=== PATIENT | female | born 1990 | race Caucasian/White ===

== ENCOUNTER 2020-08-13 08:51 | Emergency (ER) | payer BC ==
[~2020-08-13] VITALS: Ht 157.5 cm; Wt 70.3 kg
[~2020-08-13 08:51] MED LIST: CEPH500C PO; CYCL10TA9 PO; METR500T PO; PREN-115 PO; TRM50T PO
[2020-08-13 09:00] VITALS: BP 124/97
--- NOTE | 2020-08-13 09:33 | ED EENT ---
History of Present Illness General Chief Complaint: Laceration Stated Complaint: LIP LAC Nursing Triage Note: PT AMB TO [facility] 4 WITH COMPLAINT OF LACERATION TO LEFT LOWER LIP. STATES WAS WORKING ON HOUSE LAST NIGHT AND HAD A 2X4 HIT HER IN THE FACE. Source: patient Exam Limitations: no limitations History of Present Illness Date Seen by Provider: Aug 13, 2020 Time Seen by Provider: 09:16 Initial Comments Patient presents ER by private conveyance from home with chief complaint that she was helping frame out a new room in her house and was in the wrong place at the wrong time and a 2 x 4 struck her in the left side of her mouth. She bit into her left lower lip and has knocked her left anterior upper incisor loose but she pushed it back in place. He did not fall out. She is not having any bleeding. Just some swelling and when she went to work the staff told her she needed to come get stitches in it. Patient states she feels safe at home Allergies and Home Medications Allergies Coded Allergies: No Known Drug Allergies (Unverified , 10/15/14) Home Medications Tramadol HCl 50 Mg Tablet, 50 MG PO Q6H PRN for PAIN Prescribed by: PEDRITO HILLIARD on 01/22/162012 Patient Home Medication List Home Medication List Reviewed: Yes Review of Systems Review of Systems Constitutional: No chills, No diaphoresis Eyes: Denies Blindness, Denies Blurred Vision Ears: Denies Pain Nose: denies clots, denies congestion Mouth: see HPI, pain, swelling : No All Other Systems Reviewed Negative Unless Noted: Yes Past Shpljgn-Ubrguf-Quilgj Hx Patient Social History Alcohol Use: Occasionally Uses Number of Drinks Today: FF Alcohol Beverage of Choice: Beer, Vodka Smoking Status: Current Everyday Smoker Type Used: Cigarettes Recent Infectious Disease Expo: No Recent Hopitalizations: No Immunizations Up To Date Tetanus Booster (TDap): Less than 5yrs Seasonal Allergies Seasonal Allergies: Yes Past Medical History Orthopedic Reproductive Disorders: No Female Reproductive Disorders: Denies Fractures Family Medical History No Pertinent Family Hx Physical Exam Vital Signs Vital Signs - First Documented 08/13/20 09:00 Temp 37.1 Pulse 94 Resp 20 B/P (MAP) 124/97 (106) Pulse Ox 95 O2 Delivery Room Air Height, Weight, BMI Height: 5'3" Weight: 145lbs. oz. 65.578045kr; 28.00 BMI Method:Estimated General Appearance: WD/WN, no apparent distress Eyes: bilateral eye normal inspection, bilateral eye PERRL, bilateral eye EOMI Ears: bilateral ear auricle normal, bilateral ear canal normal Nose: normal inspection; No active bleeding Mouth/Throat: other (Laceration internal mucosa of her left lower lip that is not going all the way through and hemostatic. Left upper incisor is a little loose.) Cardiovascular: normal peripheral pulses, regular rate, rhythm Respiratory: no respiratory distress, no accessory muscle use Progress/Results/Core Measures Results/Orders Vital Signs/I&O 08/13/20 09:00 Temp 37.1 Pulse 94 Resp 20 B/P (MAP) 124/97 (106) Pulse Ox 95 O2 Delivery Room Air Blood Pressure Mean: 106 Progress Progress Note : Time: 09:29 Progress Note Does not cross the vermilion border. It is hemostatic. We have discussed that she can just treat this with salt water gargles, Orajel and time. Ice pack for the lip swelling. We instructed her to go to the dentist to get her tooth addressed. If it falls out putting milk and follow-up with the dentist Departure Impression Primary Impression: Laceration of lower lip Qualified Codes: S01.511A - Laceration without foreign body of lip, initial encounter Additional Impression: Tooth loose Disposition: 01 HOME, SELF-CARE Condition: Stable Departure-Patient Inst. Decision time for Depature: 09:30 Referrals: KRYSTAL KEARNS DDS, ADAM S DO (PCP/Family) Primary Care Physician Patient Instructions: Mouth and Dental Injuries in Adults Add. Discharge Instructions: The skin inside your mouth rarely needs sutured because it heals so quickly. If it bleeds you can steep a bag of tea and then drain it and put the tea bag directly on the wound to get it stop bleeding. Gauze with Orajel for pain. Tylenol and Motrin for pain. Ice applied to the lip for swelling and pain 20 minutes on every 2 hours as necessary for the first couple days. You should follow-up with a dentist promptly to make sure your tooth is seated correctly and they can help you keep the tooth from dying. If the tooth falls out put it in a solution of milk and go directly to the dentist office. All discharge instructions reviewed with patient and/or family. Voiced understanding. Work/School Note: Work Release Form Date Seen in the Emergency Department: Aug 13, 2020 Return to Work: Aug 14, 2020 Restrictions: No Restrictions Copy Copies To 1: KRYSTAL KEARNS DDS, TITUS J Aug 13, 2020 09:33
== END 2020-08-13 09:41 | disposition home or self-care (01) ==
LOC: EDUNIT# 08:51 → ER 08:52
DX: S01.511A Laceration without foreign body of lip, initial encounter (principal); K08.419 Partial loss of teeth due to trauma, unspecified class; F17.210 Nicotine dependence, cigarettes, uncomplicated; W22.8XXA Striking against or struck by other objects, initial encounter; Y92.008 Other place in unspecified non-institutional (private) residence as the place of occurrence of the external cause
CPT/HCPCS: 99282

== ENCOUNTER 2023-04-09 10:19 | Emergency (ER) | payer BC ==
[~2023-04-09 10:19] MED LIST changes: +CYCL10TA25 PO; -CYCL10TA9 PO
--- NOTE | 2023-04-09 10:51 | ED Cardiac General ---
History of Present Illness General Chief Complaint: Chest Pain Stated Complaint: CHEST PAINS Nursing Triage Note: PT CO OF CHEST PAIN THRU CENTER OF CHEST THRU TO BACK, PT STATES HAD FEVER UP TO 102 LAST WEEK, CP CONT 02/20. SMOKER. Source: patient Exam Limitations: no limitations History of Present Illness Date Seen by Provider: Apr 09, 2023 Time Seen by Provider: 10:40 Initial Comments 32-year-old female presents emergency department today for chest pain. She points to her xiphoid region as location of the pain and states it go straight through to her mid back. Symptoms present for about 2 or 3 days. She had a viral type URI prior which did include a nonproductive cough and fevers. Fevers have resolved but she still has a mild dry cough. Regarding her chest pain is sharp stabbing and very brief, fleeting about 5 seconds at a time but severe when present. She can push in the area and reproduce the pain. She denies any trauma. No cardiac history. All other systems reviewed and negative except documented per HPI. Voice recognition software was used to help create this chart ASA po PACKAGE WINDER: No Allergies and Home Medications Allergies Coded Allergies: No Known Drug Allergies (Unverified , 10/15/14) Patient Home Medication List Home Medication List Reviewed: Yes Tramadol HCl (Tramadol HCl) 50 Mg Tablet, 50 MG PO Q6H PRN for PAIN Prescribed by: PEDRITO HILLIARD on 01/22/162012 Review of Systems Review of Systems Constitutional: see HPI Past Xmxrlzy-Lptlbn-Ucytxh Hx Patient Social History Tobacco Use?: Yes Tobacco type used: Cigarettes Smoking Status: Current Everyday Smoker Substance use?: No Alcohol Use?: Yes Alcohol Frequency: Once in a while Pt feels they are or have been: No Immunizations Up To Date Tetanus Booster (TDap): Less than 5yrs Influenza Vaccine Up-to-Date: No; Not Current First/Initial COVID19 Vaccinat: YES Second COVID19 Vaccination Bear: YES Seasonal Allergies Seasonal Allergies: Yes Past Medical History Surgery/Hospitalization HX: [facility] AT CHILD, [facility] Last Menstrual Period: Mar 19, 2023 Reproductive Disorders: No Female Reproductive Disorders: Denies Fractures Family Medical History No Pertinent Family Hx Physical Exam Vital Signs Vital Signs - First Documented 04/09/23 10:29 Pulse 71 Resp 18 B/P (MAP) 142/94 (110) Pulse Ox 98 O2 Delivery Room Air Capillary Refill : Less Than 3 Seconds Height, Weight, BMI Height: 5'3" Weight: 145lbs. oz. 65.652924sr; 28.00 BMI Method:Estimated General Appearance: No Apparent Distress, WD/WN HEENT: Normal ENT Inspection, Pharynx Normal Neck: Normal Inspection, Supple Respiratory: Lungs Clear, Other (Tenderness palpation over the xiphoid region. No crepitus, deformity or skin changes.) Cardiovascular: Regular Rate, Rhythm, No Murmur, Normal Peripheral Pulses Gastrointestinal: Normal Bowel Sounds, No Organomegaly, Non Tender, Soft Extremity: Normal Capillary Refill, Normal Inspection, Normal Range of Motion, Non Tender, No Calf Tenderness Neurologic/Psychiatric: Alert, Oriented x3, Normal Mood/Affect Skin: Normal Color, Warm/Dry Progress/Results/Core Measures Results/Orders My Orders Orders - LORNACORNELIA DO Chest 1 View, Ap/Pa Only (04/09/23 10:48) Ekg Tracing (04/09/23 10:48) Vital Signs/I&O 04/09/23 10:29 Pulse 71 Resp 18 B/P (MAP) 142/94 (110) Pulse Ox 98 O2 Delivery Room Air Blood Pressure Mean: 110 Comment Sinus rhythm with a rate of 59 bpm. Normal intervals. Normal axis. No ST or T wave abnormalities. No ectopy. No STEMI. Departure Communication (Admissions) Patient is hemodynamically stable. She has very low risk for cardiac origin and certainly her story is not consistent with cardiac origin. Pain is completely reproducible in the xiphoid region alone. Chest x-ray is clear. EKG is nonischemic. Most likely costochondritis. We will go and treat with anti- inflammatory medicines and discharged in stable condition close follow-up. Impression Primary Impression: Costochondritis Disposition: 01 HOME, SELF-CARE Condition: Stable Departure-Patient Inst. Referrals: SHANNAN HUA DO (PCP/Family) Primary Care Physician Patient Instructions: Chest Pain That Is Not Caused by the Heart (DC) Add. Discharge Instructions: I believe you have costochondritis. Please take anti-inflammatory medicine such as Motrin or Aleve as needed [id number]. Return to the emergency department for any severe concerns. Follow-up with your primary doctor should your symptoms persist or change in any way concerning to you. All discharge instructions reviewed with patient and/or family. Voiced understanding. CORNELIA ROTHMAN DO Apr 09, 2023 10:51
--- NOTE | 2023-04-09 11:27 | Diagnostic Imaging Report ---
CLINICAL INDICATION: Patient with chest pain. EXAM: Portable chest x-ray, upright view. COMPARISON: None. FINDINGS: Lungs/pleura: Lungs are clear. There is no pneumothorax. There is no pleural effusion. Mediastinum: Unremarkable. Pulmonary vasculature: Unremarkable. Heart: Unremarkable. Bones/extrathoracic soft tissue: Unremarkable. IMPRESSION: There is no radiographic evidence of acute cardiopulmonary process. Dictated by: Dictated on workstation # [id number]
[2023-04-09 11:35] VITALS: BP 142/94
== END 2023-04-09 11:44 | disposition home or self-care (01) ==
LOC: EDUNIT# 10:19 → ER 10:22
DX: M94.0 Chondrocostal junction syndrome [Tietze] (principal); F17.210 Nicotine dependence, cigarettes, uncomplicated
CPT/HCPCS: 71045; 93005